=== PATIENT | male | born 1965 | race Caucasian/White ===

== ENCOUNTER 2022-10-15 05:11 | Emergency (ER) | payer OTHER ==
[2022-10-15] MEDS ORDERED: Vancomycin 1 GM/200 ML (FROZEN) BAG ONE (05:24)
[2022-10-15] MEDS ORDERED: Acetaminophen 500 MG TAB ONE (05:28)
[2022-10-15] MEDS ORDERED: Acetaminophen 325 MG Suppository ONE (05:33)
[2022-10-15] MEDS ORDERED: Ondansetron PF 4 MG/2 ML Vial ONE (05:33)
[2022-10-15 05:53] LABS: #Lymphocytes 0.4 thou/uL (1.20-3.40); #Monocytes 0.5 thou/uL (0.11-0.59); #Neutrophils 6.6 thou/uL (1.40-6.50); %Basophils 0.4 % (0.0-1.0); %Eosinophils 0.3 % (0.0-10.0); %Lymphocytes 4.8 % (21.0-51.0); %Monocytes 6.6 % (0.0-10.0); %Neutrophils 87.9 % (42.0-75.0); Hemoglobin 12.4 g/dL (14.0-18.0); Mean Corpuscular HGB CONC 32.9 g/dL (32.0-36.0); Mean Corpuscular Hemoglobin 31.3 pg (27.0-31.0); Mean Platelet Volume 9.3 fL (7.4-10.4); Platelet Count 156 10x3/uL (130-400); Red Blood Cell (RBC) Count 3.96 mill/uL (4.70-6.10); White Blood Cell (WBC) Count 7.5 10x3/uL (4.8-10.8)
[2022-10-15] MEDS ORDERED: Cefepime 2 GM VIAL ONE (05:58)
[2022-10-15 06:10] LABS: ALT (SGPT) 17 U/L (8-55); AST (SGOT) 25 U/L (5-34); Albumin 3.8 g/dL (3.5-5.0); Alkaline Phosphatase 79 U/L (40-110); Anion Gap 13 mmol/L (10-20); BUN (Urea Nitrogen) 18 mg/dL (8.4-25.7); Bilirubin, Total 0.9 mg/dL (0.2-1.2); Calc. Creatinine Clearance 0 mL/min (70-130); Calcium 9.1 mg/dL (7.8-10.44); Carbon Dioxide 17 mmol/L (22-29); Chloride 113 mmol/L (98-107); Estimated GFR 100; Globulin 2.9 g/dL (2.4-3.5); Glucose 94 mg/dL (70-105); Magnesium 1.6 mg/dL (1.6-2.6); Potassium 3.5 mmol/L (3.5-5.1); Protein, Total 6.7 g/dL (6.0-8.3); Sodium 139 mmol/L (136-145)
[2022-10-15 06:23] LABS: SARS-CoV-2 NAA Rapid Test Not Detected (NotDetected)
[2022-10-15 06:32] LABS: CKMB 1.3 ng/mL (0-6.6)
[2022-10-15 07:18] LABS: Bilirubin Negative (Negative); Blood, Urine Negative (Negative); Clarity Clear (Clear); Glucose, Urine (Dipstick) Normal (Negative); Ketone, Urine Negative (Negative); Leukocyte Negative Leu/uL (Negative); Nitrite Negative (Negative); Protein, Urine (Dipstick) Negative (Neg-Trace); Specific Gravity, Urine 1.017 (1.002-1.036); Urobilinogen Normal mg/dL (Less than 2)
[2022-10-15] MEDS ORDERED: Ketorolac Tromethamine 30 MG/ML VIAL ONE (08:24)
== END 2022-10-15 11:30 | disposition short-term general hospital (02) ==
LOC: ERS 05:11
DX: A41.9 Sepsis, unspecified organism (principal); L03.115 Cellulitis of right lower limb; Z20.822 Contact with and (suspected) exposure to COVID-19
CPT/HCPCS: 36415; 36416; 71045; 80053; 81003; 82140; 82553; 83605; 83735; 84484; 85025; 87040; 87077; 87086; 87149; 87186; 93005; 96361; 96365; 96366; 96368; 96375; J0692; J1885; J2405; J3370-JW